=== PATIENT | female | born 1985 | race Caucasian/White ===

== ENCOUNTER 2019-01-07 10:56 | Day surgery (SDC) | payer MEDICAID ==
[2019-01-07] VITALS (15 sets, daily range): BP systolic 105–123; BP diastolic 58–68; PULSE 66–86; RESP 16–21; Ht 152.4 cm; Wt 104.1 kg
[~2019-01-07] VITALS: Ht 152.4 cm; Wt 104.1 kg
[~2019-01-07 10:56] MED LIST: ACETAMINOPHEN 500 MG TAB PO ONE; CEFAZOLIN 1 GM/50 ML (PMX) 50 ML IVPB ONE; SOD CHLORIDE 0.9% 1,000 ML IV SCH
[2019-01-07] MEDS ORDERED: METOCLOPRAMIDE 10 MG INJ ONE (13:14)
[2019-01-07] MEDS ORDERED: PROPOFOL 40 ML ONE (13:22)
[2019-01-07] MEDS ORDERED: ONDANSETRON 4 MG INJ ONE (13:22)
[2019-01-07] MEDS ORDERED: MIDAZOLAM 1 MG/ML 2 ML INJ ONE (13:22)
[2019-01-07] MEDS ORDERED: FENTAnyl 50 MCG/ML VIAL ONE (13:22)
[2019-01-07] MEDS ORDERED: FAMOTIDINE 20 MG INJ ONE (13:22)
[2019-01-07] MEDS ORDERED: CEFAZOLIN 1 GM INJ ONE (13:22)
[2019-01-07] MEDS ORDERED: LIDOCAINE 2% (SDV) 5 ML INJ ONE (13:22)
[2019-01-07] MEDS ORDERED: morphine 2 MG INJ IV PRN ×2 (13:30)
[2019-01-07] MEDS ORDERED: EPHEDrine 25 MG/5 ML SYG IV PRN (13:30)
[2019-01-07] MEDS ORDERED: ONDANSETRON 4 MG INJ IV PRN (13:30)
[2019-01-07] MEDS ORDERED: ALBUTEROL 0.083% (NEB) 2.5 MG/3 ML AMP HHN PRN (13:30)
[2019-01-07] MEDS ORDERED: OXYCODONE/ACETAMINOPHEN (5/325) TAB PO PRN ×2 (13:30)
[2019-01-07] MEDS ORDERED: LEVALBUTEROL (NEB) 0.63 MG/3 ML AMP HHN PRN (13:30)
[2019-01-07] MEDS ORDERED: DIPHENHYDRAMINE 50 MG INJ IV PRN (13:30)
[2019-01-07] MEDS ORDERED: ATROPINE 1 MG/10 ML SYRINGE IV PRN (13:30)
[2019-01-07] MEDS ORDERED: FENTAnyl 50 MCG/ML VIAL IV PRN ×2 (13:30)
[2019-01-07] MEDS ORDERED: LABETALOL HCL 20MG INJ IV PRN (13:30)
[2019-01-07] MEDS ORDERED: KETOROLAC 15 MG INJ IV PRN (13:30)
[2019-01-07] MEDS ORDERED: HYDROmorphONE 1 MG/5 ML IV SYRINGE IV PRN ×3 (13:30)
[2019-01-07] MEDS ORDERED: hydrALAzine 20 MG INJ IV PRN (13:30)
[2019-01-07] MEDS ORDERED: HYDROCODONE/APAP (7.5/325) TAB PO PRN (14:30)
== END 2019-01-07 16:29 | disposition home or self-care (01) ==
LOC: SDS 10:56
PROVIDERS: ATTEND Surgery Surgical Oncology
DX: D24.2 Benign neoplasm of left breast (principal); E66.9 Obesity, unspecified; Z68.41 Body mass index [BMI] 40.0-44.9, adult
CPT/HCPCS: 19120; 80053; 84703; 85025; 85610; 85730; 88307; J0690; J2250; J2405; J2765; J3010; Z7512; Z7610